=== PATIENT | female | born 1965 | race Caucasian/White ===

== ENCOUNTER 2021-01-07 13:24 | Emergency (ER) | payer OTHER ==
--- NOTE | 2021-01-07 14:45 | ERPHSYRPT ---
- History of Present Illness Time Seen by Provider: 01/07/21 13:55 Source: patient Exam Limitations: no limitations Patient Subjective Stated Complaint: Pt states "I am a big lady and yesterday at camp I went to stand and pushed myself off the floor and heard and felt some thing in my wrist pop and now it hurts." Triage Nursing Assessment: Pt presented alert and oriented X 3, skin pwd Pt ambulates with an upright steady gait, able to speak in clear full senentences pt left wrist slightly swollen. CSM X 4 Physician History: Patient is a 55-year-old white female who was at [employer] yesterday used her hand to push off the floor and felt a pop in the dorsum of the right hand. Now complains about swelling and pain in the dorsum of the left hand. Occurred: yesterday Method of Injury: other (Forced flexion) Quality: constant Severity of Pain-Max: severe Severity of Pain-Current: severe Extremities Pain Location: hand: right (And tenderness over the dorsum of the right hand) Modifying Factors: Improves With: movement Associated Symptoms: none Allergies/Adverse Reactions: No Known Drug Allergies Allergy (Verified 01/07/21 13:49) Hx Tetanus, Diphtheria Vaccination/Date Given: No Hx Influenza Vaccination/Date Given: No Hx Pneumococcal Vaccination/Date Given: No Immunizations Up to Date: Yes Travel Risk - International Travel Have you traveled outside of the country in past 3 weeks: No - Coronavirus Screening Are you exhibiting any of the following symptoms?: No Close contact with a COVID-19 positive Pt in past 14-21 Days: No - Vaccine Status Have you recieved a Covid-19 vaccination: No - Review of Systems Constitutional: No Fever, No Chills Eyes: No Symptoms Ears, Nose, & Throat: No Symptoms Respiratory: No Cough, No Dyspnea Cardiac: No Chest Pain, No Edema, No Syncope Abdominal/Gastrointestinal: No Abdominal Pain, No Nausea, No Vomiting, No Diarrhea Genitourinary Symptoms: No Dysuria Musculoskeletal: Joint Pain, No Back Pain, No Neck Pain Skin: No Rash Neurological: No Dizziness, No Focal Weakness, No Sensory Changes Psychological: No Symptoms Endocrine: No Symptoms All Other Systems: Reviewed and Negative - Past Medical History Pertinent Past Medical History: No Neurological History: No Pertinent History ENT History: No Pertinent History Cardiac History: No Pertinent History Respiratory History: No Pertinent History Endocrine Medical History: No Pertinent History Musculoskeletal History: No Pertinent History GI Medical History: No Pertinent History History: No Pertinent History Psycho-Social History: No Pertinent History Female Reproductive Disorders: No Pertinent History - Past Surgical History Past Surgical History: No Neuro Surgical History: No Pertinent History Cardiac: No Pertinent History Respiratory: No Pertinent History Gastrointestinal: No Pertinent History Genitourinary: No Pertinent History Musculoskeletal: No Pertinent History Female Surgical History: No Pertinent History - Social History Smoking Status: Former smoker Exposure to second hand smoke: No Drug Use: none Patient Lives Alone: Yes - Female History Hx Last Menstrual Period: 12/10/2020 Hx Now: No - Nursing Vital Signs Nursing Vital Signs: Initial Vital Signs Temperature 98.4 F 01/07/21 13:43 Pulse Rate 102 H 01/07/21 13:43 Respiratory Rate 20 01/07/21 13:43 Blood Pressure 180/118 01/07/21 13:43 O2 Sat by Pulse Oximetry 96 01/07/21 13:43 Pain Scale Pain Intensity 8 - Physical Exam General Appearance: no apparent distress, moderate distress, alert Eyes, Ears, Nose, Throat Exam: moist mucous membranes Neck Exam: non-tender, supple Cardiovascular/Respiratory Exam: chest non-tender, normal breath sounds, regular rate/rhythm, no respiratory distress Abdominal Exam: non-tender, No guarding Back Exam: normal inspection, No vertebral tenderness Wrist Exam: bone tenderness, limited ROM, pain, soft tissue tenderness, swelling Hand Exam: bone tenderness, limited ROM, soft tissue tenderness, swelling Neuro/Tendon Exam: normal sensation, normal motor functions Mental Status Exam: alert, oriented x 3, cooperative Skin Exam: normal color, warm, dry SpO2: 96 Procedures - Splinting Location of Splint: Right, Hand, Wrist Type of Splint: Velcro Splint Splint Applied By: ED Nurse Pre-Proc Neuro Vasc Exam: normal Post-Proc Neuro Vasc Exam: neurovascular intact - Course Nursing assessment & vital signs reviewed: Yes - Radiology Exams Other X-ray Interpretation: Interpreted by me, Other (Right hand and wrist negative fracture or dislocation) Ordered Tests: Active Orders 24 hr Category Date Time Status HAND (MINIMUM 3 VIEWS) Stat Exams 01/07/21 14:19 Taken WRIST (MIN 3 VIEWS) Stat Exams 01/07/21 14:19 Taken - Progress Progress: unchanged Progress Note: 01/07/21 14:45 Patient instructed directed to follow-up with Ortho clinic. - Departure Departure Disposition: Home Clinical Impression: Hand sprain Condition: Stable Critical Care Time: No Referrals: ASHELY CAZARES [Primary Care Provider] - Instructions: Boxer's Fracture (DC) Additional Instructions: Follow-up with Ortho clinic Prescriptions: Oxycodone HCl/Acetaminophen [Percocet 5-325 mg Tablet] 1 each PO Q6H PRN PRN #12 tablet MDD 4 PRN Reason: Pain
[2021-01-07 14:51] VITALS: BP 137/93; PULSE 92
[2021-01-07 14:55] VITALS: O2SAT 96
--- NOTE | 2021-01-07 20:20 | XRAY ---
Indication: Pain following injury. Comparison: None 3 view right wrist demonstrates moderate degenerative changes 1st metacarpal multangular articulation. No other bony, articular, or soft tissue abnormalities.
--- NOTE | 2021-01-07 20:20 | XRAY ---
Indication: Pain following injury. Comparison: None 3 view right hand demonstrates moderate degenerative changes 1st metacarpal multangular articulation. No other bony, articular, or soft tissue abnormalities.
== END 2021-01-07 15:04 | disposition home or self-care (01) ==
LOC: ED 13:24
DX: S63.8X2A Sprain of other part of left wrist and hand, initial encounter (principal); X50.9XXA Other and unspecified overexertion or strenuous movements or postures, initial encounter; Y93.9 Activity, unspecified; Y92.89 Other specified places as the place of occurrence of the external cause
CPT/HCPCS: 73110; 73130; 99283; A4570